=== PATIENT | female | born 1960 | race Caucasian/White ===

== ENCOUNTER 2017-08-23 12:53 | Observation (INO) | payer OTHER ==
[~2017-08-23] VITALS: Ht 170.2 cm; Wt 68.2 kg
[2017-08-23 12:57] VITALS: Ht 170.2 cm; Wt 68.2 kg
[2017-08-23 14:11] LABS: BASOPHIL % 0.4 % (0-2); PLATELET COUNT 326 x10^3mcL (130-400); RED CELL DISTRIBUTION WIDTH 13.4 % (11.5-14.5)
[2017-08-23 14:27] LABS: CALCIUM 9.9 mg/dL (8.5-10.1); CARBON DIOXIDE 26.7 mmol/L (21-32); CHLORIDE SERUM 97 mmol/L (98-107); CREATININE SERUM 0.8 mg/dL (0.6-1.0); GFR1 > 60 mL/min; GLUCOSE SERUM 90 mg/dL (74-106); POTASSIUM SERUM 3.3 mmol/L (3.5-5.1); SODIUM SERUM 138 mmol/L (136-145)
[2017-08-23 14:30] LABS: ALBUMIN 4.2 g/dL (3.4-5.0); ALKALINE PHOSPHATASE 78 U/L (46-116); ALT/SGPT 32 U/L (14-59); AST/SGOT 21 U/L (15-37); BILIRUBIN TOTAL 0.4 mg/dL (0.20-1.00); LIPASE 147 IU/L (73-393)
[2017-08-23] MEDS ORDERED: BENAZEPRIL HYDR20 M1 PO (14:53)
[2017-08-23] MEDS ORDERED: HYDROCHLOROTHIA25 MG PO (14:54)
[2017-08-23] MEDS ORDERED: GOOD SENSE OMEP20 MG PO (14:55)
[2017-08-23] MEDS ORDERED: IBUPROFEN600 MG PO (14:56)
[2017-08-23] MEDS ORDERED: GOOD SENSE ASP325 MG PO (14:56)
[2017-08-23] MEDS ORDERED: VITAMIN D22000 I1 PO (14:57)
[2017-08-23] MEDS ORDERED: MECLIZINE TRAVE25 MG PO (14:58)
[2017-08-23] MEDS ORDERED: XANAX0.5 MG PO (14:58)
[2017-08-23 16:06] LABS: T3 TOTAL 1.23 ng/mL
[2017-08-23 16:12] LABS: FREE T4 1.14 ng/dL (0.76-1.46); FREE THYROXINE INDEX 3.2 ug/dL (1.4-4.5); T4(THYROXINE) 10.2 ug/dL (4.7-13.3)
[2017-08-23 16:25] LABS: microscopic required? NO
[2017-08-23 16:26] VITALS: BP 148/70
[2017-08-23 16:35] LABS: UA SPECIFIC GRAVITY <=1.005 (1.005-1.035); urine erythrocyte NEGATIVE (NEGATIVE)
[2017-08-23 16:44] LABS: AMPHETAMINE QUAL UR NONE DETECTED (NEG <=1000)
[2017-08-23 16:47] LABS: MAGNESIUM 1.8 mg/dL (1.8-2.4); PHOSPHOROUS 2.4 mg/dL (2.5-4.9)
[2017-08-23 16:49] LABS: CHOLESTEROL/HDL RATIO 2.3
[2017-08-23 16:54] VITALS: BP 148/70
[2017-08-23 21:55] VITALS: BP 103/62
[2017-08-24 05:48] VITALS: BP 108/61
[2017-08-24 09:13] VITALS: BP 120/57
[2017-08-24] MEDS ORDERED: SIMETHICONE80 MG CH ×2 (10:51→13:07)
[2017-08-24] MEDS ORDERED: LIPI10 PO ×2 (10:51→13:06)
[2017-08-24] MEDS ORDERED: TOR10 PO ×2 (10:51→13:03)
[2017-08-24 13:37] VITALS: BP 120/57
[2017-08-24 13:54] VITALS: BP 128/69
== END 2017-08-24 16:10 | disposition home or self-care (01) | DRG 206 ==
LOC: ED 12:53 → DU 14:31
PROVIDERS: Emergency Medicine; Family Medicine
DX: M94.0 Chondrocostal junction syndrome [Tietze] (principal); E87.6 Hypokalemia; E83.39 Other disorders of phosphorus metabolism; I08.1 Rheumatic disorders of both mitral and tricuspid valves; E78.5 Hyperlipidemia, unspecified; K21.9 Gastro-esophageal reflux disease without esophagitis; N28.1 Cyst of kidney, acquired; K59.00 Constipation, unspecified; F41.0 Panic disorder [episodic paroxysmal anxiety]; I10 Essential (primary) hypertension; G25.81 Restless legs syndrome; R42 Dizziness and giddiness; Z68.23 Body mass index [BMI] 23.0-23.9, adult; Z79.82 Long term (current) use of aspirin; Z79.1 Long term (current) use of non-steroidal anti-inflammatories (NSAID)
CPT/HCPCS: 72072; 83880; 84439; G0378; J1885; J3010; J3480; J3490; J7030; Q0092; Q0162